=== PATIENT | male | born 1960 | race Native Hawaiian/Other Pacific Islander ===

== ENCOUNTER 2021-05-24 23:51 | Emergency (ER) | payer OTHER ==
[~2021-05-24] VITALS: Ht 175.3 cm; Wt 91.6 kg
[~2021-05-24 23:51] MED LIST: ASPIRIN 81 LOW81 MG PO; ATIVAN2 M1 PO; CALCIUM 600600 MG PO; CELECOXIB200 MG PO; CLON1TAB18 PO; DIVALPROEX500 MG PO; DOCU100C10 PO; DONE5TAB PO; DONEPEZIL HYDRO10 M1 PO; ESCI10TA PO; MELATONIN MAXIMU5 MG PO; MELATONIN10 M1 PO; OXCARBAZEPIN300 MG PO; OXCARBAZEPIN600 MG PO; QUET25TA2 PO; QUETIAPINE400 MG PO; TOPAMAX100 MG PO; TOPI100T PO; TRAMADOL HYDROC50 MG PO; TRAZODONE HYDR150 MG PO; TYLENOL325 MG PO; VENL37.511 PO; VENLAFAXINE HY150 M1 PO; VITAMIN D325 MCG PO
[2021-05-25 00:49] LABS: PLATELET COUNT 191 K/uL (142-355)
[2021-05-25 01:00] LABS: POTASSIUM 3.8 mmol/L (3.6-5.2)
[2021-05-25 03:45] VITALS: BP 120/78; TEMP 98.6
[2021-05-25] MEDS ORDERED: CLON1TAB18 PO (12:07)
[2021-05-25] MEDS ORDERED: TOPIRAMATE100 MG PO (12:21)
== END 2021-05-25 03:45 | disposition still patient (30) ==
LOC: ED 23:51
PROVIDERS: Hospitalist
DX: F25.8 Other schizoaffective disorders (principal); F31.89 Other bipolar disorder; F03.91 Unspecified dementia, unspecified severity, with behavioral disturbance; R53.1 Weakness; Z11.52 Encounter for screening for COVID-19; Z04.6 Encounter for general psychiatric examination, requested by authority
CPT/HCPCS: 36415; 80053; 81000; 85027; 87077; 87086; 87088; 87186; 87635; 93005; 96360; 96365; 99284; J0696; U0003

== ENCOUNTER 2021-09-03 18:54 | Emergency (ER) | payer OTHER ==
[~2021-09-03] VITALS: Ht 167.6 cm; Wt 88.5 kg
[~2021-09-03 18:54] MED LIST changes: +TOPIRAMATE100 MG PO
[2021-09-03 19:00] VITALS: BP 135/80; TEMP 98.7
[2021-09-03 19:28] LABS: PLATELET COUNT 219 K/uL (142-355)
[2021-09-03 19:41] LABS: POTASSIUM 3.8 mmol/L (3.6-5.2)
[2021-09-04] MEDS ORDERED: ESCI20TA PO (03:51)
[2021-09-04] MEDS ORDERED: QUETIAPINE25 MG PO (03:53)
[2021-09-04] MEDS ORDERED: OXCARBAZEPIN600 MG PO (03:53)
[2021-09-04] MEDS ORDERED: QUETIAPINE50 MG PO (03:55)
[2021-09-04] MEDS ORDERED: FLUTICASON50 MCG/AC1 NAS (04:28)
[2021-09-04] MEDS ORDERED: [UNRECOGNIZED DRUG - OTHER] PO (04:29)
[2021-09-04] MEDS ORDERED: TRAMADOL HYDROC50 MG PO (04:29)
[2021-09-04] MEDS ORDERED: HALO5INJ3 IM (04:37)
[2021-09-04] MEDS ORDERED: ARTIFICIAL TEAR1.4 % OPTH (10:06)
== END 2021-09-04 01:10 | disposition still patient (30) ==
LOC: ED 18:54
PROVIDERS: Hospitalist
DX: F25.8 Other schizoaffective disorders (principal); R46.89 Other symptoms and signs involving appearance and behavior; Z11.52 Encounter for screening for COVID-19; Z04.6 Encounter for general psychiatric examination, requested by authority
CPT/HCPCS: 36415; 80053; 80164; 81002; 85027; 87635; 93005; 96372; 99283; J0696; U0003